=== PATIENT | male | born 1985 | race Caucasian/White ===

== ENCOUNTER 2020-01-15 13:28 | Emergency (ER) | payer OTHER ==
[~2020-01-15] VITALS: Ht 190.5 cm; Wt 124.7 kg
[2020-01-15 13:41] VITALS: Ht 190.5 cm; Wt 124.7 kg
[2020-01-15 14:35] VITALS: BP 134/72
== END 2020-01-15 14:35 | disposition home or self-care (01) ==
LOC: ED 13:28
DX: K02.9 Dental caries, unspecified (principal); L03.211 Cellulitis of face
CPT/HCPCS: J2930